=== PATIENT | female | born 1970 | race Caucasian/White ===

== ENCOUNTER 2019-09-30 07:22 | Emergency (ER) | payer OTHER ==
[~2019-09-30] VITALS: Ht 152.4 cm; Wt 64.0 kg
[~2019-09-30 07:22] MED LIST: FLUT16SP NS; HYDR25CA PO; LAMO100T37 PO; MONT10TA49 PO; OMEP40CA45 PO; POLY17PO29 PO; RISP0.5T3 PO; RIZA10TA PO; TOPI100T42 PO
[2019-09-30 07:50] VITALS: BP 155/74
[2019-09-30] MEDS ORDERED: PROM12.58 PO (08:05)
--- NOTE | 2019-09-30 08:05 | PHYS DOC ---
Past Medical History Past Medical History: Bipolar, Depression, Fibromyalgia, GERD Past Surgical History: No Surgical History Smoking Status: Never Smoker Alcohol Use: None Drug Use: None Adult General Chief Complaint Chief Complaint: PAIN CONTROL HPI HPI Patient is a 49 year old female who presents with complaint of myalgia pain. She was recently tapered off of Cymbalta and started on Lyrica yesterday. She did see her primary care physician yesterday. She states that her pain is in her shoulders and her legs and described as nervelike pain. Her pain is moderate to severe. She has not taken any other medication today. She has no prescribed narcotics from her primary care physician. In the past she has used tramadol. Review of Systems Review of Systems All other ROS is negative unless otherwise stated in HPI Allergies Allergies Allergies Coded Allergies Type Severity Reaction Last Updated Verified Penicillins Allergy Intermediate 08/15/19 Yes Sulfa (Sulfonamide Antibiotics) Allergy Intermediate 08/15/19 Yes clarithromycin Allergy Intermediate 08/15/19 Yes metronidazole Allergy Intermediate 08/15/19 Yes Physical Exam Physical Exam See above Constitutional: Well developed, well nourished, no acute distress, non-toxic appearance. [] HENT: Normocephalic, atraumatic, bilateral external ears normal, oropharynx moist, no oral exudates, nose normal. [] Eyes: PERRLA, EOMI, conjunctiva normal, no discharge. [] Neck: Normal range of motion, no tenderness, supple, no stridor. [] Cardiovascular:Heart rate regular rhythm, no murmur [] Lungs & Thorax: Bilateral breath sounds clear to auscultation [] Abdomen: Bowel sounds normal, soft, no tenderness, no masses, no pulsatile masses. [] Skin: Warm, dry, no erythema, no rash. [] Back: No tenderness, no CVA tenderness. [] Extremities: No tenderness, no cyanosis, no clubbing, ROM intact, no edema. [] Neurologic: Alert and oriented X 3, normal motor function, hyperalgesia, no focal deficits noted. [] Current Patient Data Vital Signs Vital Signs Date Time Temp Pulse Resp B/P (MAP) Pulse Ox O2 Delivery O2 Flow Rate FiO2 09/30/19 07:50 98.5 85 16 155/74 (101) 98 Room Air 98.5 EKG EKG [] Radiology/Procedures Radiology/Procedures [] Course & Med Decision Making Course & Med Decision Making Pertinent Labs and Imaging studies reviewed. (See chart for details) This patient is seen for further allows the pain. We'll give her an injection of morphine and prescribed Phenergan and she also complains of some nausea. I will prescribe tramadol 3 days. Dragon Disclaimer Dragon Disclaimer This electronic medical record was generated, in whole or in part, using a voice recognition dictation system. Departure Departure Impression: Primary Impression: Fibromyalgia Disposition: HOME, SELF-CARE Condition: STABLE Referrals: MARLENE HOLBROOK MD (PCP) Please follow up with your doctor on Wednesday for futher care and evaluation. Patient Instructions: Fibromyalgia Scripts Tramadol Hcl (TRAMADOL HCL) 50 Mg Tablet 50 MG PO TID PRN for PAIN for 3 Days, #9 TAB 0 Refills Prov: TRENT MARCUM DO 09/30/19 Promethazine Hcl (PROMETHAZINE HCL) 12.5 Mg Tablet 1 TAB PO Q6-8HRS for motion sickness for 5 Days, #20 TAB 0 Refills Prov: TRENT MARCUM DO 09/30/19 TRENT MARCUM DO Sep 30, 2019 08:05
[2019-09-30] MEDS ORDERED: TRAM50TA PO (08:08)
[2019-09-30] MEDS ORDERED: MORPHINE SULFATE 4 MG/ML VIAL. IM ONE (08:15)
[2019-09-30] MEDS ORDERED: PROMETHAZINE 12.5 MG TABLET. PO ONE (08:15)
== END 2019-09-30 08:45 | disposition home or self-care (01) ==
LOC: ER 07:22
DX: M79.7 Fibromyalgia (principal); F31.9 Bipolar disorder, unspecified; K21.9 Gastro-esophageal reflux disease without esophagitis; Z88.0 Allergy status to penicillin; Z88.1 Allergy status to other antibiotic agents; Z88.2 Allergy status to sulfonamides; Z88.8 Allergy status to other drugs, medicaments and biological substances
CPT/HCPCS: 96372; 99283; J2270; Q0169

== ENCOUNTER → 2020-02-16 | Outpatient (CLI) | payer OTHER ==
[~2020-02-16] MED LIST changes: +PROM12.58 PO; +TRAM50TA PO
--- NOTE | 2020-02-16 15:34 | KCIC ---
MRI Cervical Spine Without Contrast History:Cervicalgia, crepitus of the spine, fibromyalgia Technique: Multiplanar, multi sequential noncontrast MR imaging was performed of the cervical spine. Comparison: None Findings: There is motion degradation. Cervical cord caliber is within normal limits without defined or expansile signal change. Cervical vertebral body stature is maintained. There is posterior annular tear C2-C3. There is mild degenerative disc disease C5-6. There is negligible anterior spondylolisthesis C4-5. There is no significant marrow edema. C2-C3: There is a negligible posterior central protrusion. Central canal is adequate about 11 mm. Neural foramina are adequate. C3-C4: Spinal canal and neural foramina are adequate. C4-C5: There is moderate right facet degenerative change. Spinal canal and neural foramina are adequate. C5-C6: There is negligible disc osteophyte complex, superimposed negligible protrusion in the right lateral recess. Central canal is adequate about to 11 mm. There is mild right facet hypertrophic change. Neural foramina are not significantly narrowed, probable minimal narrowing on the right. C6-C7: Spinal canal and neural foramina are adequate. C7-T1: Neural foramina and spinal canal are adequate. Impression: 1. There is no significant cervical spinal stenosis. There is minimal degenerative disc disease and spondylosis C5-6. Electronically signed by: Yifan Tavares MD (02/16/2020 3:31 PM) [id number]
--- NOTE | 2020-02-16 15:40 | KCIC ---
MRI Thoracic Spine without contrast History: Thoracic pain, fibromyalgia, crepitus Technique: Multiplanar, multi sequential noncontrast MR imaging was performed of the thoracic spine. Comparison: None Findings: There is motion degradation. Thoracic vertebral body stature and AP alignment are maintained. Thoracic cord caliber is within normal limits, no defined or expansile signal abnormality. There is no marrow edema. Intervertebral disc spaces are overall maintained. There is no significant thoracic spinal stenosis at any level. Neural foramina are adequate. There is no significant focal posterior disc abnormality of the thoracic spine. 74 There are very small dependent pleural effusions bilaterally. Impression: 1. There is no thoracic spinal stenosis or neural foramina compromise. 2. There are very small dependent pleural effusions bilaterally. Electronically signed by: Yifan Tavares MD (02/16/2020 3:37 PM) [id number]
--- NOTE | 2020-02-16 15:52 | KCIC ---
MRI Lumbar Spine without contrast History: Low back pain, fibromyalgia, crepitus of the spine Technique: Multiplanar, multi sequential noncontrast MR imaging was performed of the lumbar spine. Comparison: None Findings: Lumbar vertebral body stature and AP alignment are preserved. Intervertebral disc spaces are overall maintained. There is no significant focal marrow edema. Conus terminates at L1-L2. There is very mild lumbar levoscoliosis. L1-2, L2-3: These levels were not included on the axial images. Neural foramina and spinal canal are adequate. L3-4: Neural foramina and spinal canal are adequate. L4-L5: Spinal canal and neural foramina are adequate. L5-S1: Spinal canal and neural foramina are adequate. Impression: 1. There is no significant lumbar spinal stenosis or neural foramina compromise. Electronically signed by: Yifan Tavares MD (02/16/2020 3:50 PM) [id number]
== END | disposition home or self-care (01) ==
LOC: KCIC MRI 12:37
PROVIDERS: ATTEND Family Medicine
DX: M50.31 Other cervical disc degeneration, high cervical region (principal); M47.812 Spondylosis without myelopathy or radiculopathy, cervical region; M25.78 Osteophyte, vertebrae; J90 Pleural effusion, not elsewhere classified
CPT/HCPCS: 72141; 72146; 72148

== ENCOUNTER → 2020-05-01 | Outpatient (CLI) | payer OTHER ==
[~2020-05-01] MED LIST changes: +GADOTERATE 7.5 MMOL/15ML VIAL. IVP ONE
--- NOTE | 2020-05-01 11:51 | KCIC ---
MRI of the Brain/Pituitary Gland without and with Contrast 05/01/2020 Clinical History: Elevated prolactin level. Technique: Unenhanced T1-weighted sagittal and axial and FLAIR, T2-weighted, gradient echo and diffusion-weighted axial images of the brain were obtained. Thin section T1-weighted sagittal and coronal and T2 weighted coronal images through the pituitary gland were obtained. After the intravenous administration of 12cc of Clariscan, enhanced T1-weighted axial and coronal images of the brain were obtained. Additionally thin section T1-weighted sagittal and coronal and dynamic enhanced T1-weighted coronal images through the pituitary gland were obtained. Findings: No previous imaging studies are available for comparison. The ventricles and sulci are within normal limits in size and configuration. No area of abnormal signal intensity is seen involving the brain parenchyma. No abnormal area of contrast enhancement is seen. No extra-axial fluid collection is noted. There is no MRI evidence of acute ischemia/infarction. Images through the pituitary gland demonstrate a faint rounded area of diminished contrast enhancement on the coronal dynamic images involving the right aspect of the anterior lobe of the pituitary gland. This measures 2.5 mm in greatest diameter. This is felt to most likely representing a pituitary microadenoma. The pituitary gland is otherwise within normal limits. Mild to moderate mucosal thickening is seen involving the sphenoid sinus. Mild mucosal thickening is seen involving the ethmoid air cells bilaterally both maxillary sinuses. There are minimal bilateral mastoid effusions. Normal flow voids are seen within the major vascular structures surrounding the brain parenchyma. 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 Electronically signed by: Karri Cheugn MD (05/01/2020 11:48 AM) [id number]
== END ==
LOC: KCIC MRI 09:08
PROVIDERS: ATTEND Obstetrics & Gynecology
DX: R79.89 Other specified abnormal findings of blood chemistry (principal)
CPT/HCPCS: 70553; A9575